=== PATIENT | female | born 1980 | race Caucasian/White ===

== ENCOUNTER → 2018-12-14 | Outpatient (CLI) | payer OTHER ==
[~2018-12-14] MED LIST: FLEXERIL; FLEXERIL PO; FLOMAX0.4 MG; GILENYA0.5 MG; HYOMAX-DT0.375 MG PO; MEDROLDOSEPACK PO; METROGEL-VAGINA70 GM TOP; MOBIC15 MG PO; MORPHINE SULFAT10 M1 PO; MS CONTIN15 MG; NEURONTIN600 MG; NEURONTIN800 MG PO; OXYCONTIN CR 1010 M1 PO; PROTONIX 20 MG20 M1; SINGULAIR 10 MG10 M1; TECFIDERA240 MG PO; TOPAMAX 25 MG T25 M1 PO; VERAPAMIL HCL80 MG PO; VESICARE 5 MG TA5 MG; VITAMIN B-12100 MC1; VITAMIN D 5050000 I1
== END ==
LOC: M.RAD 16:19
DX: M79.642 Pain in left hand (principal); M79.89 Other specified soft tissue disorders

== ENCOUNTER → 2021-04-19 | Outpatient (CLI) | payer OTHER | LOC: M.ULTRA 14:45 | PROVIDERS: ATTEND Nurse Practitioner Family | DX: M79.662 Pain in left lower leg (principal) ==